=== PATIENT | male | born 1935 | race African-American/Black ===

== ENCOUNTER 2024-11-09 14:18 | Emergency (ER) | payer OTHER ==
[~2024-11-09] VITALS: Ht 170.2 cm; Wt 74.0 kg
[2024-11-09 14:27] VITALS: O2SAT 99
[2024-11-09 15:35] LABS: HEMATOCRIT. 38.4 % (42.0-52.0); HEMOGLOBIN. 12.0 g/dL (14.0-18.0); MEAN PLATELET VOLUME 6.7 fl (7.4-10.4); PLATELET 370 x1000/uL (130-400); RED BLOOD CELL COUNT 5.07 mill/uL (4.7-6.1); RED CELL DISTRIBUTION WIDTH 18.9 % (11.6-14.6)
[2024-11-09 15:42] LABS: CREATININE 1.9 mg/dL (0.6-1.3); UREA NITROGEN BLOOD 36 mg/dL (9-23)
[2024-11-09 15:44] LABS: ASPARTATE AMINOTRANSFERASE 92 IU/L (<34); BILIRUBIN DIRECT 0.3 mg/dL (<=3.0)
[2024-11-09 15:45] LABS: BILIRUBIN TOTAL 0.9 mg/dL (0.1-1.0); PROTEIN TOTAL 8.1 g/dL (6.0-8.3)
[2024-11-09 16:02] LABS: INR 1.1
[2024-11-09] MEDS: SODIUM CHLORIDE 0.9% 1,000 ML IV ONE ×2 (16:03→16:55)
[2024-11-09 17:34] LABS: LYMPHOCYTES % MANUAL 3.0 % (20.0-50.0); MONOCYTES % MANUAL 7.0 % (2.0-8.0); NEUTROPHILS % MANUAL 90.0 % (45.0-75.0)
[2024-11-09 17:35] LABS: PLATELET ESTIMATE NORMAL
[2024-11-09 19:35] VITALS: BP 130/49; PULSE 77; RESP 13; TEMP 36.8; O2SAT 99
== END 2024-11-09 19:49 | disposition short-term general hospital (02) ==
LOC: ER 14:53
DX: F03.90 Unspecified dementia, unspecified severity, without behavioral disturbance, psychotic disturbance, mood disturbance, and anxiety (principal); R41.0 Disorientation, unspecified; N17.9 Acute kidney failure, unspecified; E86.0 Dehydration; D64.9 Anemia, unspecified; R94.5 Abnormal results of liver function studies; I67.82 Cerebral ischemia; Z60.2 Problems related to living alone; Z91.83 Wandering in diseases classified elsewhere
CPT/HCPCS: 80076; 80048; 80320; 82140; 82550; 85025; 85610; 36415; 70450; 96360; 96361; 99285; J7030; Z7610; A4606; G0480